=== PATIENT | male | born 1965 | race Caucasian/White ===

== ENCOUNTER 2016-10-11 13:55 | Emergency (ER) | payer OTHER ==
[2016-10-11 14:52] LABS: BASO % 0.4 % (0.2-1.0); EOS # 0.1 (0.0-0.5); EOS % 0.7 % (0.9-2.9); HEMATOCRIT 45.3 % (32.0-52.0); HEMOGLOBIN 15.5 gm/l (14.0-18.0); IMM NEUT% 0.4 % (0-1); LYMPH # 3.4 (1.0-4.8); LYMPH % 37.7 % (15-45); MEAN CELL VOLUME 82.2 fl (80.0-94.0); MEAN CORPUSCULAR HEMOGLOBIN 28.1 pg (27.0-31.0); MEAN CORPUSCULAR HGB CONC 34.2 g/dl (33.0-37.0); MEAN PLATELET VOLUME 9.3 fl (7.4-10.4); MONO # 0.6 (0.0-0.8); MONO % 6.1 % (4-12); NEUT % 54.7 % (43-75); PLATELET COUNT 297 K/mm3 (130-400); RED CELL DISTRIBUTION WIDTH 12.5 % (11.5-14.5); SPECIFIC GRAVITY 1.025 (1.001-1.030); URINE BILIRUBIN NEGATIVE (NEGATIVE); URINE BLOOD 4+ (NEGATIVE); URINE GLUCOSE (UA) 3+ (NEGATIVE); URINE LEUKOCYTE ESTERASE 2+ (NEGATIVE); URINE NITRITE NEGATIVE (NEGATIVE); URINE PROTEIN 1+ (NEGATIVE); URINE UROBILINOGEN NORMAL (0-1 mg/dl)
[2016-10-11 14:56] LABS: URINE APPEARANCE HAZY; URINE COLOR YELLOW
[2016-10-11 14:59] LABS: URINE BACTERIA 1+; URINE EPITHELIAL CELLS 15-20 /hpf; URINE MUCUS 1+; URINE RBC >100 /hpf; URINE WBC 20-30 /hpf
[2016-10-11 15:04] LABS: ALB/GLOB RATIO 0.9 (>1.0); ALBUMIN 3.4 gm/dL (3.5-5.7); CALCIUM 8.5 mg/dL (8.6-10.3)
--- NOTE | 2016-10-11 16:46 | CT ---
Name: AJAY ALUREN Exam: Noncontrast renal stone CT Comparison: 03/31/2007 Clinical History: Right flank pain Procedure: Helical CT using multidetector technique was applied to the abdomen and pelvis without contrast. Sagittal, axial and coronal reconstructions were obtained. An automated dose reduction technique was used to minimize patient radiation dose. Findings: CT abdomen (noncontrast): Lung bases are clear. Heart is not enlarged. There is no pericardial effusion. Fatty changes liver are present. The gallbladder is not distended. There is no suspicious biliary dilation. Pancreas, spleen, adrenal glands, left kidney, aorta, IVC and portal vein are normal. The right kidney is swollen and perinephric and periureteral stranding is present. There is no hydronephrosis or ureterectasis. Stomach, small bowel and colon are normal. There is no free air, free fluid or suspicious adenopathy. Degenerative changes of the spine are present. CT pelvis (noncontrast): Bladder is normal size. In the dependent portion of the bladder slightly to the right of midline, there is a 2 mm calculus. The right ureter is not dilated but there is some periureteral stranding. The left ureter is normal caliber. The prostate and seminal vesicles are within normal limits. There is minimal colonic diverticulosis without current evidence for diverticulitis. Small bowel is within normal limits. Appendix is not identified however there are no secondary signs of appendicitis. There is no free air, free fluid or suspicious adenopathy. Impression: 1. Findings most consistent with a recently passed 2 mm calculus which now lies in the dependent portion of bladder. Superimposed pyelonephritis is not excluded on this exam. 2. Mild distal colonic diverticulosis without current evidence for diverticulitis 3. Fatty infiltration of liver Note: The above report was uploaded to [facility]'s electronic medical records system at 1642 hours.
[2016-10-11 17:30] LABS: URINE BILIRUBIN NEGATIVE (NEGATIVE); URINE BLOOD 4+ (NEGATIVE); URINE GLUCOSE (UA) 3+ (NEGATIVE); URINE LEUKOCYTE ESTERASE TRACE (NEGATIVE); URINE NITRITE NEGATIVE (NEGATIVE); URINE PROTEIN TRACE (NEGATIVE); URINE UROBILINOGEN NORMAL (0-1 mg/dl)
[2016-10-11 17:31] LABS: URINE APPEARANCE HAZY; URINE COLOR DARK YELLOW
[2016-10-11 17:46] LABS: URINE BACTERIA NONE SEEN; URINE EPITHELIAL CELLS 0-2 /hpf; URINE MUCUS 1+
== END 2016-10-11 18:07 | disposition home or self-care (01) ==
LOC: ED 13:55
DX: N20.1 Calculus of ureter (principal); E78.00 Pure hypercholesterolemia, unspecified